=== PATIENT | female | born 1960 ===

== ENCOUNTER 2024-05-23 05:55 | Day surgery (SDC) | payer OTHER ==
[~2024-05-23 05:55] MED LIST: PREVACID30 MG
[2024-05-23] MEDS ORDERED: DIPHENHYDRAMINE HCL 50 MG/ML VIAL 1ML IV ONE (08:30)
[2024-05-23] MEDS ORDERED: MIDAZOLAM HCL 2 MG/2 ML VIAL IV ONE (08:30)
[2024-05-23] MEDS ORDERED: fentaNYL CITRATE 50 MCG/ML AMPUL IV PUSH ONE (08:30)
== END 2024-05-23 09:50 | disposition home or self-care (01) ==
LOC: AMB-ENDOS 05:55 → CIR.AMB 14:45
PROVIDERS: ATTEND Colon & Rectal Surgery
DX: K63.5 Polyp of colon (principal); K62.1 Rectal polyp; Z91.013 Allergy to seafood